=== PATIENT | male | born 1985 | race Caucasian/White ===

== ENCOUNTER → 2019-04-22 11:04 | Outpatient (CLI) | payer SELFPAY ==
--- NOTE | 2019-04-22 11:16 | HTC.HP3 ---
Problem List (1) Hemophilia B in male Status: Chronic Subjective Date of Service:: 04/22/19 Chief Complaint: F/U for Hemophilia B. 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 Has not used factor replacement this year. Has Dentures. Health History: Past Medical History Past Medical History: Bleeding disorder Past Surgical History Surgical: Back Family History Paternal Past Medical History: Hypertension Maternal Past Medical History: Unknown Past Surgical History (Last Updated 04/23/18 @ 11:33 by Mile Miramontes) Previous back surgery (Acute) Allergies/Adverse Reactions: Allergy/AdvReac Type Severity Reaction Status Date / Time aspirin AdvReac Severe BLEEDING Verified 04/22/19 11:28 Risk Factors Social History Smoking Status Never smoker Tobacco Risk Data: Tobacco Risk Smoking Status Never smoker Type of tobacco: Smokeless tobacco usage: Items/Day: Year started: Years used: Counseled to quit/cut down: Reason for no counseling performed: Reason for no pharmacotherapy: Tobacco use comments: Passive smoke exposure: Substance Risk Drug use: Caffeine use [drinks/day]: Alcohol use: Type of alcohol: Drinks per day: Has patient felt the need to cut down: Has the patient been annoyed by complaints: Has the patient felt guilty about drinking: Has the patient needed an eye quality assurance consultant in the mornings: Comments: Review of Systems Constitutional:: Denies: Fever, Sweats, Weight loss, Appetite change, Chills Cardiovascular:: Denies: Chest pain, Palpitations, Dyspnea on exertion, Orthopnea, PND, Shortness of breath Respiratory: Denies: Cough, Hemoptysis, Shortness of Breath, Wheezing Gastrointestinal:: Denies: Abdominal pain, Nausea, Vomiting, Diarrhea, Constipation, Hematochezia Genitourinary: Denies: Dysuria, Hematuria, 15, Flank pain Musculoskeletal:: Denies: Back pain, Myalgia, Arthralgia Skin: Denies: Rash, Skin Changes, Wounds Neurological:: Denies: Headache, Dizziness, Visual changes, Tinnitus, Hearing loss Psychiatric: Denies: Anxiety, Depression, Homicidal Ideations, Suicidal Ideations - Physical Exam General: Alert, Oriented x3, No apparent distress HEENT: Atraumatic, PERRLA, EOMI, Normocephalic Oropharynx:: Dry mucosa, - - +Dentures. Neck:: Supple, Trachea midline. Negative for: JVD, bilateral Cardiac:: Regular rate, Regular rhythm, Normal S1, Normal S2. Negative for: Murmur Lungs: Clear to auscultation, Excusion symmetrical. Negative for: Rhonchi, Wheezes Abdomen:: Bowel sounds x 4, Soft, Non-tender, Non-distended, - - scar lower back. Negative for: Hepatosplenomegaly Extremities:: Negative for: Cyanosis, Edema Neurological: Neuro grossly intact Skin:: Negative for: Lesions, Rash, Petechiae, Ecchymosis Psychiatric:: Appropriate affect, Euthymic Lymphatics:: Negative for: Cervical lymphadenopathy, Supraclavicular lymphadenopathy, Axillary lymphadenopathy Assessment and Plan Hemophilia B, clinically stable. Plan is to continue expectant management with factor replacement as needed. RTC 1 yr. Primary Care Provider: No Primary Care Phys Referring Provider: Nilton Siegel MD
[2019-04-22 11:18] VITALS: BP 112/73; PULSE 79; RESP 16; TEMP 36.6; O2SAT 99; BMI 28.0
--- NOTE | 2019-04-22 11:35 | WMO.HTC_ITS ---
Problem List (1) Hemophilia B in male Status: Chronic Subjective Date of Service:: 04/22/19 Chief Complaint: F/U for Hemophilia B. 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 Has not used factor replace ment this year. Has Dentures. Health History: Past Medical History Past Medical History: Bleeding disorder Past Surgical History Surgical: Back Family History Paternal Past Medical History: Hypertension Maternal Past Medical History: Unknown Past Surgical History (Last Updated 04/23/18 @ 11:33 by Mile Miramontes) Previous back surgery (Acute) Allergies/Adverse Reactions: Allergy/AdvReac Type Severity Reaction Status Date / Time aspirin AdvReac Severe BLEEDING Verified 04/22/19 11:28 Risk Factors Social History Smoking Status Never smoker Tobacco Risk Data: Tobacco Risk Smoking Status Never smoker Type of tobacco: Smokeless tobacco usage: Items/Day: Year started: Years used: Counseled to quit/cut down: Reason for no counseling performed: Reason for no pharmacotherapy: Tobacco use comments: Passive smoke exposure: Substance Risk Drug use: Caffeine use [drinks/day]: Alcohol use: Type of alcohol: Drinks per day: Has patient felt the need to cut down: Has the patient been annoyed by complaints: Has the patient felt guilty about drinking: Has the patient needed an eye cloth brushing and sueding supervisor in the mornings: Comments: Review of Systems Constitutional:: Denies: Fever, Sweats, Weight loss, Appetite change, Chills Cardiovascular:: Denies: Chest pain, Palpitations, Dyspnea on exertion, Orthopn ea, PND, Shortness of breath Respiratory: Denies: Cough, Hemoptysis, Shortness of Breath, Wheezing Gastrointestinal:: Denies: Abdominal pain, Nausea, Vomiting, Diarrhea, Constipation, Hematochezia Genitourinary: Denies: Dysuria, Hematuria, 15, Flank pain Musculoskeletal:: Denies: Back pain, Myalgia, Arthralgia Skin: Denies: Rash, Skin Changes, Wounds Neurological:: Denies: Headache, Dizziness, Visual changes, Tinnitus, Hearing loss Psychiatric: Denies: Anxiety, Depression, Homicidal Ideations, Suicidal Ideations - Physical Exam General: Alert, Oriented x3, No apparent distress HEENT: Atraumatic, PERRLA, EOMI, Normocephalic Oropharynx:: Dry mucosa, - - +Dentures. Neck:: Supple, Trachea midline. Negative for: JVD, bilateral Cardiac:: Regular rate, Regular rhythm, Normal S1, Normal S2. Negative for: Murmur Lungs: Clear to auscultation, Excusion symmetrical. Negative for: Rhonchi, Wheezes Abdomen:: Bowel sounds x 4, Soft, Non-tender, Non-distended, - - scar lower back. Negative for: Hepatosplenomegaly Extremities:: Negative for: Cyanosis, Edema Neurological: Neuro grossly intact Skin:: Negative for: Lesions, Rash, Petechiae, Ecchymosis Psychiatric:: Appropriate affect, Euthymic Lymphatics:: Negative for: Cervical lymphadenopathy, Supraclavicular lymphadenopathy, Axillary lymphadenopathy Assessment and Plan Hemophilia B, clinically stable. Plan is to continue expectant management with factor replacement as needed. RTC 1 yr. Primary Care Provider: No Primary Care Phys Referring Provider: Nilton Siegel MD
== END ==
PROVIDERS: Visit Provider Internal Medicine Medical Oncology
DX: D67 Hereditary factor IX deficiency (principal); Z88.6 Allergy status to analgesic agent